=== PATIENT | female | born 1985 | race Caucasian/White ===

== ENCOUNTER 2017-02-19 09:51 | Day surgery (SDC) | payer BC ==
--- NOTE | ~2017-02-19 | EGD ---
EGD REPORT [facility] [address] [place] [address] NAME: MELANIE BEGUM : 87 STATUS : REG [facility]#: [id number] AGE: 31 ADM/REG DATE : 02/19/17 MR#: [id number] REPORT SERV DATE: 02/19/17 DICTATED BY: SABINO MATT DATE: 02/19/17 REPORT STATUS : Draft [facility] DATE: 02/19/17 Endoscopy Center Patient Name: Melanie Begum Date of : 1985 Attending MD: SABINO MATT MD Procedure Date No Time: 02/19/2017 Procedure: Upper GI endoscopy Indications: Follow-up of acute gastrojejunal ulcer Referring MD: JAY AYALA Medicines: as per anesthesia Complications: No immediate complications. Procedure: Pre-Anesthesia Assessment: - ASA Grade Assessment: III - A patient with severe systemic disease. After obtaining informed consent, the endoscope was passed under direct vision. Throughout the procedure, the patient's blood pressure, pulse, and oxygen saturations were monitored continuously. The GIF [id number] was introduced through the mouth, and advanced to the jejunum. The upper GI endoscopy was accomplished without difficulty. The patient tolerated the procedure. Findings: The examined esophagus was normal. Evidence of a gastric bypass was found. A gastric pouch was found. The gastrojejunal anastomosis was characterized by ulceration. This was traversed. The [id number] limb was characterized by healthy appearing mucosa. Impression: - Normal esophagus. - Gastric bypass. Recommendation: - Continue present medications. Procedure Code(s): --- Professional --- 79348, Esophagogastroduodenoscopy, flexible, transoral; diagnostic, including collection of specimen(s) by brushing or washing, when performed (separate procedure) Diagnosis Code(s): --- Professional --- Z98.84, Bariatric surgery status K28.3, Acute gastrojejunal ulcer without hemorrhage or perforation EGD REPORT [facility] [address] [place]. [address] NAME: MELANIE BEGUM : 87 STATUS : REG [facility] [place] PAT#: [id number] AGE: 31 ADM/REG DATE : 02/19/17 MR#: [id number] REPORT SERV DATE: 02/19/17 DICTATED BY: SABINO MATT. DATE: 02/19/17 REPORT STATUS : Draft TRANSCRIBED BY: [employer] DATE: 02/19/17 CPT copyright 2013 [employer]. All rights reserved. The codes documented in this report are preliminary and upon spray stainer review may be revised to meet current compliance requirements. SABINO MATT MD 02/19/2017 1:20 PM This report has been signed electronically. Number of Addenda: 0 Note Initiated On: 02/19/2017 12:55 PM Scope Withdrawal Time 0 hours 0 minutes 0 seconds [address] [place] [address]
[~2017-02-19 09:51] MED LIST: ABILIFY2 PO; CREON DR 3,0001 EACH PO; CREON12000 UNT; INTEGRA PLUS C1 EACH PO; MULTIPLE VIT PO; NORCO1 TA1 PO; PAXIL40 MG PO; PRILOSEC40 MG PO; PRIN10 PO; QUESTRAN4 GM PO; RANITIDINE300 MG PO; VITAMIN B-121000 MC1 SL; VITAMIN D31000 UNIT PO; VITC500 PO
== END 2017-02-19 23:59 | disposition home or self-care (01) ==
LOC: DMU 09:51
PROVIDERS: Internal Medicine Gastroenterology
PROC: 0DJ08ZZ Inspection of Upper Intestinal Tract, Via Natural or Artificial Opening Endoscopic (ICD-10-PCS; principal; 2017-02-19 10:00)
DX: K28.3 Acute gastrojejunal ulcer without hemorrhage or perforation (principal); M19.90 Unspecified osteoarthritis, unspecified site; K21.9 Gastro-esophageal reflux disease without esophagitis; F41.9 Anxiety disorder, unspecified; F32.9 Major depressive disorder, single episode, unspecified; Z68.41 Body mass index [BMI] 40.0-44.9, adult; E66.01 Morbid (severe) obesity due to excess calories; Z85.828 Personal history of other malignant neoplasm of skin; Z98.84 Bariatric surgery status; Z90.89 Acquired absence of other organs; Z79.3 Long term (current) use of hormonal contraceptives; Z79.899 Other long term (current) drug therapy
CPT/HCPCS: 84703